=== PATIENT | male | born 1990 | race Caucasian/White ===

== ENCOUNTER 2016-09-09 02:02 | Emergency (ER) | payer OTHER ==
[2016-09-09 02:14] VITALS: BP 133/75; PULSE 116; RESP 20; O2SAT 96
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
[2016-09-09 04:02] VITALS: BP 129/70; PULSE 101; RESP 16; O2SAT 97
== END 2016-09-09 04:01 | disposition home or self-care (01) ==
LOC: SED 02:02
DX: S00.83XA Contusion of other part of head, initial encounter (principal); S09.90XA Unspecified injury of head, initial encounter; Y04.0XXA Assault by unarmed brawl or fight, initial encounter; Y93.89 Activity, other specified; Y92.009 Unspecified place in unspecified non-institutional (private) residence as the place of occurrence of the external cause; Y99.8 Other external cause status